=== PATIENT | male | born 1950 | race Caucasian/White ===

== ENCOUNTER → 2023-08-27 10:43 | Outpatient (REF) | payer OTHER, SELFPAY | LOC: DHCBS MAIN 10:43 | PROVIDERS: ATTENDING PHYSICIAN Internal Medicine Cardiovascular Disease; FAMILY PHYSICIAN Internal Medicine | DX: I77.810 Thoracic aortic ectasia (principal); I10 Essential (primary) hypertension | CPT/HCPCS: 93306 ==

== ENCOUNTER → 2023-11-28 06:34 | Day surgery (SDC) | payer OTHER, SELFPAY | LOC: GI 06:34 | PROVIDERS: ATTENDING PHYSICIAN Internal Medicine | DX: Z12.11 Encounter for screening for malignant neoplasm of colon (principal); Z86.010 Personal history of colon polyps; K64.9 Unspecified hemorrhoids; K57.30 Diverticulosis of large intestine without perforation or abscess without bleeding; D12.0 Benign neoplasm of cecum; D12.3 Benign neoplasm of transverse colon; D12.2 Benign neoplasm of ascending colon | CPT/HCPCS: 45385; 45380; 88305 ==

== ENCOUNTER 2024-02-05 07:58 | Day surgery (SDC) | payer OTHER, SELFPAY ==
[2024-01-20 14:04] VITALS: BMI 27.5
[2024-01-20 14:36] LABS: INR 2.21; PT 24.4 Sec (11.4-14.6)
[2024-01-20 14:39] LABS: ALT (SGPT) 11 U/L (0-50); AST (SGOT) 19 U/L (17-59); Albumin 2.9 g/dl (3.5-5.0); Alkaline Phosphatase 84 U/L (38-126); Blood Urea Nitrogen 69 mg/dl (9-20); Calcium 11.4 mg/dl (8.4-10.2); Carbon Dioxide 25 mmol/L (22-30); Chloride 103 mmol/L (98-107); Estimated Creatinine Clearance 20 ml/min; Glucose 92 mg/dl (70-99); Magnesium 2.2 mg/dl (1.6-2.3); Potassium 5.4 mmol/L (3.5-5.1); Sodium 140 mmol/L (135-145); Total Protein 6.8 g/dl (6.3-8.2); eGFR 22.01
[2024-01-20 14:50] LABS: Total Bilirubin 0.6 mg/dl (0.2-1.3)
[2024-01-20 14:56] LABS: % Basophils 0.4 % (0-2); % Eosinophils 2.9 % (0-6); % Immature Granulocytes 0.2 % (0-0.5); % Lymphocytes 16.3 % (20.5-51.1); % Monocytes 10.7 % (1.7-9.3); % Neutrophils 69.5 % (42.2-75.2); Absolute Eosinophils 0.1 10^3/uL (0-0.7); Absolute Lymphocytes 0.7 10^3/uL (1.2-3.4); Absolute Monocytes 0.5 10^3/uL (0.1-0.6); Absolute Neutrophils 3.1 10^3/uL (1.4-6.5); Hematocrit 34.7 % (39.0-52.0); Hemoglobin 11.5 g/dL (13.0-18.0); Mean Corp Hgb Conc. 33.1 g/dL (33.0-37.0); Mean Corpuscular Hgb 32.1 pg (27.0-31.0); Mean Corpuscular Volume 96.9 fL (80.0-94.0); Mean Platelet Volume 11.2 fL (7.4-10.4); Nucleated Red Blood Cells % 0 % (-); Platelet Count 173 10^3/uL (130-400); Red Blood Cell Count 3.58 10^6/uL (4.70-6.10); Red Cell Dist. Width 13.7 % (11.5-14.5); White Blood Cell Count 4.5 10^3/uL (4.8-10.8)
[2024-02-05] VITALS (13 sets, daily range): BP systolic 112–132; BP diastolic 69–82
--- NOTE | 2024-02-05 09:31 | ITS.CL.ABL ---
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
Ablation
Procedure Report:
ELECTROPHYSIOLOGIC STUDY AND POSSIBLE ABLATION
DATE: February 05, 2024
Primary Care Provider: Dr. Rufino Matos
INDICATION:
Symptomatic Atrial Fibrillation.
Persistent
HISTORY: See H and P.
Symptomatic AF, poorly controlled with attempted medical therapy
He has a history of PAF, non-obstructive CAD, PAF, AF related cardiomyopathy, CKD (Stage 3), HTN, mildly dilated aortic root and dyslipidemia.
Initial PVI (RF) in 2010 and did well for several years, then recurred.
He again did well from an arrhythmia standpoint for several years after his�ablation ([place])August 16, 2015.
He recurred with symptomatic (fatigue) atrial fibrillation and required cardioversion February 06, 2019
Echocardiogram obtained prior to his cardioversion in December 2018 while he was in atrial fibrillation demonstrated reduction in LV function 35-40%, LVH up to 1.5 cm at IVS.
Amiodarone was initiated in 2018 to maintain sinus rhythm.
He has recurred with symptoms of fatigue, especially exertional fatigue and once again has been found to be in atrial fibrillation despite amiodarone.�
He has been maintained on oral anticoagulation.
HAS-BLED: 2
Age
Abnormal Renal Function
CHADSVASc: 4
CHF, NYHA Class 3, HFimpEF
HTN
Age (nearly age 74 yrs)
PRESENTING RHYTHM: AF
HISTORY: See H and P.
Symptomatic AF, poorly controlled with attempted medical therapy.
ANTICOAGULATION: rivaroxaban dose reduced to 15 mg daily based on CKD
'TIME-OUT': called and confirmed.
SEDATION/ANESTHESIA: provided via the anesthesia department using general anesthesia.
PROCEDURE:
Ultrasound Guidance performed by pr was utilized for femoral venous Vascular Access b/l.
A decapolar CS catheter was placed within the CS for mapping and pacing.
The intracardiac ultrasound catheter was positioned in the RA for continuous intracardiac ultrasound imaging.
Heparin bolus and infusion to target ACT at 300 -350 seconds was administered. Transseptal puncture was performed. This entailed advancing a sheath with dilator into the superior vena cava and withdrawing both (monitoring intracardiac ultrasound,
fluoroscopy and tip pressure) with the tip oriented toward the atrial septum. The fossa ovalis was engaged (indicated by sudden displacement of the sheath tip as well as tenting of the fossa seen on intracardiac ultrasound).
[employer] transseptal system was used. Left atrial catheter position was confirmed by echocardiographic imaging, pressure monitoring (LA mean pressure [ ] mm Hg) and fluoroscopy. The sheath was advanced over the dilator and positioned in the left
atrium.
The multipolar mapping catheter was initially positioned through the transseptal sheath for high density mapping.
Geometry and voltage mapping was performed using the Tingz multipolar grid catheter. Navex was utilized for three-dimensional electroanatomical mapping.
A 3-D map was created using Navex. This demonstrates 5 distinct pulmonary veins, left superior pulmonary vein, left inferior pulmonary vein, right superior pulmonary vein, right middle pulmonary vein and right inferior pulmonary vein.
Electroanatomical activation mapping demonstrated reconnection at the right middle pulmonary vein while the other pulmonary veins were electrically isolated. The posterior wall of the left atrium finds patchy voltage electrograms with patches of
electrically inactive tissue (no prior posterior wall ablation)
The [place] Pulse Select PFA catheter and system was used for cardiac ablation. Catheter positioning was guided and confirmed using both I.C.E. and fluoroscopy.
PV isolation approach was used to electrically isolate the right middle pulmonary vein and additional lesions were also given to the ostia of the other pulmonary veins to ensure ostial isolation. Then additional ablation lesion set encompassing
left atrial posterior wall ablation was accomplished. Next cardioversion restored sinus rhythm. Each PV ostia.
Remapping with the Tingz multipolar grid catheter found that all PVPs were eliminated at each vein demonstrating entrance block. Also pacing from the multipolar mapping catheter around the the circumference of the ostia was performed at 10 ma and
2.0 msec output to assess for exit block. Additionally the posterior wall of the left atrium is electrically isolated with both entrance and exit block.
Programmed electrical stimulation was performed and could not induce any arrhythmias.
I.C.E. :
Pre-Ablation Post-Ablation
LVEF: 50 % 50 %
WMA: none none
Pericardial effusion: none none
COMPLICATIONS:
none
SUMMARY:
- Mapping and ablation to isolate the PVs
- Additional AF ablation set after PVI.
- 3-D Electroanatomical Mapping
- Intracardiac Ultrasound
Post ablation, I discussed today's findings and results with the patient's , Angela.
RECOMMENDATIONS:
- Observe in monitored bed.
- Maintain oral anticoagulation.
- Office visit with me in 3 months.
-Note that there was extensive scarring of the posterior wall of the left atrium, there is both left atrial and right atrial dilatation. If he recurs with subsequent atrial arrhythmias my recommendation would be for antiarrhythmic drug therapy to
maintain sinus rhythm long-term.
Copy to: Dr. Rufino Matos
[2024-02-05 10:53] LABS: ACT-LR - POC 332 Seconds (116-155)
[2024-02-05 11:20] LABS: ACT-LR - POC 290 Seconds (116-155)
[2024-02-05] MEDS: NSS 500 IV (14:43)
--- NOTE | 2024-02-05 14:43 | PTCARENOTE ---
Pt heaved and dressing noted with 1/2 $ amount of blood. Area soft but ecchymotic after 1/2 heaving. Pressure held for 10 minutes. Nausea quickly resolved and pt elected to use the bathroom. Unable to void. VS stable when returned to bed with post
ambulation BP 120's/70's. Harleen AT RISK PARAPROFESSIONAL notified. IVB of 250 nss administered. Dressing removed to check for ooze. None noted.He sleeps when undisturbed. No murmur heard on auscultation.
--- NOTE | 2024-02-05 16:05 | W.PN.UPDATE ---
Update Note
Progress Note Update
Pt seen post PFA. Right FV with vascade closure, no ht/bleeding. OOB ambulating. Some difficulty with urination early but given 250cc NSS bolus and able to urinate a small amount. Post EKG NSR 80s, no acute changes. Resume xarelto tonight, continue
other meds as before. Followup with Dr. Holman as scheduled. Home today if groin site/tele remain stable.
== END 2024-02-05 16:00 | disposition home or self-care (01) ==
LOC: CATH 07:58
PROVIDERS: ATTENDING PHYSICIAN Internal Medicine Cardiovascular Disease; FAMILY PHYSICIAN Internal Medicine
DX: I48.0 Paroxysmal atrial fibrillation (principal); Z79.01 Long term (current) use of anticoagulants; I13.0 Hypertensive heart and chronic kidney disease with heart failure and stage 1 through stage 4 chronic kidney disease, or unspecified chronic kidney disease; I50.9 Heart failure, unspecified; N02.B1 Recurrent and persistent immunoglobulin A nephropathy with glomerular lesion; I10 Essential (primary) hypertension; I42.8 Other cardiomyopathies; K21.9 Gastro-esophageal reflux disease without esophagitis; G47.33 Obstructive sleep apnea (adult) (pediatric)
CPT/HCPCS: C1732; C1894; C1733; C1769; C1892; 36415; 76937; 80053; 83735; 85025; 85347; 85610; 86850; 86900; 86901; 93005; 93656; 93657; C1730; C1759; C1760

== ENCOUNTER → 2024-05-22 06:53 | Day surgery (SDC) | payer OTHER, SELFPAY ==
--- NOTE | 2024-05-23 08:55 | ITS.CL.CARDI ---
Audiology Technician - Cardioversion
Cardioversion
Procedure Report:
Date of Procedure: 05/22/24
Procedure: Cardioversion
Indication: Symptomatic atrial fibrillation
Performing Physician: Mariel Richmond DO [facility]
Anticoagulation: Xarelto
Antiarrhythmic therapy: Amiodarone
Technique: The patient was brought to the holding area. Signed informed consent was obtained. A time out was called and performed. The patient was anesthetized by the anesthesia service. Anticoagulation status was reviewed and appropriate. R2 pads
were placed anteriorly and posteriorly. A 200 J synchronized biphasic shock restored normal sinus rhythm without significant bradycardia. There were no complications.
Conclusion: Uncomplicated cardioversion from atrial fibrillation to sinus rhythm.
Recommendation: Routine post cardioversion care. Continue terminal supervisor anticoagulation.
== END ==
LOC: CATH 06:53
PROVIDERS: ATTENDING PHYSICIAN Internal Medicine Cardiovascular Disease; FAMILY PHYSICIAN Internal Medicine; OTHER PHYSICIAN Internal Medicine Cardiovascular Disease
DX: I48.0 Paroxysmal atrial fibrillation (principal); I25.10 Atherosclerotic heart disease of native coronary artery without angina pectoris; I12.9 Hypertensive chronic kidney disease with stage 1 through stage 4 chronic kidney disease, or unspecified chronic kidney disease; N18.4 Chronic kidney disease, stage 4 (severe); E78.2 Mixed hyperlipidemia; E03.9 Hypothyroidism, unspecified; K21.9 Gastro-esophageal reflux disease without esophagitis; G47.33 Obstructive sleep apnea (adult) (pediatric); Z87.891 Personal history of nicotine dependence; Z79.01 Long term (current) use of anticoagulants; Z79.84 Long term (current) use of oral hypoglycemic drugs
CPT/HCPCS: 92960; 93005

== ENCOUNTER 2024-05-29 12:15 | Emergency (ER) | payer OTHER, SELFPAY ==
[2024-05-29 12:20] VITALS: BP 176/81
[2024-05-29 12:51] LABS: Urine Albumin 3+ (Neg - Trace); Urine Bilirubin Negative (Negative); Urine Character Bloody (Clear); Urine Color Red; Urine Glucose Trace (Negative); Urine Ketone Negative (Negative); Urine Leukocyte 1+ (Negative); Urine Nitrite Negative (Negative); Urine Occult Blood 4+ (Negative); Urine Specific Gravity 1.015 (<1.030); Urine Urobilinogen Negative (Neg - 1+)
[2024-05-29 13:06] LABS: ALT (SGPT) 16 U/L (0-50); AST (SGOT) 23 U/L (17-59); Albumin 4.5 g/dl (3.5-5.0); Alkaline Phosphatase 96 U/L (38-126); Blood Urea Nitrogen 71 mg/dl (9-20); Carbon Dioxide 30 mmol/L (22-30); Chloride 100 mmol/L (98-107); Glucose 101 mg/dl (70-99); Potassium 5.1 mmol/L (3.5-5.1); Sodium 139 mmol/L (135-145); Total Bilirubin 0.7 mg/dl (0.2-1.3); Total Protein 6.8 g/dl (6.3-8.2); Urine Squamous Cell 0-2 /LPF (Few); eGFR 17.56
[2024-05-29 13:07] LABS: Urine Red Blood Cell >100 /HPF (0-2); Urine White Cell 50-60 /HPF (0-5)
[2024-05-29 13:11] LABS: % Basophils 0.7 % (0-2); % Eosinophils 3.1 % (0-6); % Immature Granulocytes 0.2 % (0-0.5); % Lymphocytes 15.2 % (20.5-51.1); % Monocytes 10.9 % (1.7-9.3); % Neutrophils 69.9 % (42.2-75.2); Absolute Eosinophils 0.1 10^3/uL (0-0.7); Absolute Lymphocytes 0.7 10^3/uL (1.2-3.4); Absolute Monocytes 0.5 10^3/uL (0.1-0.6); Absolute Neutrophils 3.1 10^3/uL (1.4-6.5); Hematocrit 34.2 % (39.0-52.0); Mean Corp Hgb Conc. 32.2 g/dL (33.0-37.0); Mean Corpuscular Hgb 31.6 pg (27.0-31.0); Mean Corpuscular Volume 98.3 fL (80.0-94.0); Mean Platelet Volume 10.5 fL (7.4-10.4); Nucleated Red Blood Cells % 0 % (-); Platelet Count 164 10^3/uL (130-400); Red Blood Cell Count 3.48 10^6/uL (4.70-6.10); Red Cell Dist. Width 14.8 % (11.5-14.5); White Blood Cell Count 4.5 10^3/uL (4.8-10.8)
[2024-05-29 13:37] LABS: INR 2.34; PT 25.7 Sec (11.4-14.6)
[2024-05-29 14:11] VITALS: BMI 25.8
--- NOTE | 2024-05-29 14:27 | ED.GENMED ---
History of Present Illness
General
Chief Complaint: Urinary Symptoms
Time Seen by Provider: 05/29/24 13:28
History of Present Illness
History of Present Illness:
73-year-old male presents the emergency department for evaluation of hematuria and urinary frequency beginning last night. Denies any urine retention. No flank pain or fevers.
Past History
Past History
ED Past Medical History: Arrthythmia, CAD, HTN, Hypercholesterolemia and Other (GI bleed)
ED Past Surgical History: Cardiac (Recent ablation and cardioversion) and Orthopedic
Social History
Tobacco: Non-smoker
Personal:
Living: with family
Review of Systems
Review of Systems
Allergies reviewed?: Yes
All Other Systems: ROS reviewed and negative except as documented in HPI and ROS
Phy Exam
Physical Exam
Physical Exam:
GEN: Well appearing, NAD, WDWN
HEENT: Oral mucosa moist, no scleral icterus
Cardiac: Regular rate
Lung: No respiratory distress, no tachypnea
Abdomen: Soft, nontender to palpation
MSK: No gross deformity or injuries
Skin: Good color, no pallor or jaundice, no rashes
Neuro: AO x3, moves all extremities freely
Psych: Calm, cooperative
Course
Orders/Labs/Results
Orders:
Orders
05/29/24 12:36
CBC/With Diff [Complete Blood Count/With Diff] Urgent
Comprehensive Metabolic Panel Urgent
PT/INR [Prothrombin Time] Urgent
Urinalysis Reflex To Culture Urgent
Date Specimen was Collected: 05/29/24
Time Specimen was Collected: 12:24
Urine Microscopic Reflex Cult Urgent
Urine Culture Urgent
SHARI Source: U
Specimen Description:
Date Specimen was Collected: 05/29/24
Time Specimen was Collected: 12:24
Abnormal Lab Results
05/29/24
12:36
WBC 4.5 L 10^3/uL
(4.8-10.8)
RBC 3.48 L 10^6/uL
(4.70-6.10)
Hgb 11.0 L g/dL
(13.0-18.0)
Hct 34.2 L %
(39.0-52.0)
MCV 98.3 H fL
(80.0-94.0)
MCH 31.6 H pg
(27.0-31.0)
MCHC 32.2 L g/dL
(33.0-37.0)
RDW 14.8 H %
(11.5-14.5)
MPV 10.5 H fL
(7.4-10.4)
Absolute Lymphs (auto) 0.7 L 10^3/uL
(1.2-3.4)
Lymphocytes % 15.2 L %
(20.5-51.1)
Monocytes % 10.9 H %
(1.7-9.3)
PT 25.7 H Sec
(11.4-14.6)
BUN 71 H mg/dl
(9-20)
Creatinine 3.5 H mg/dL
(0.7-1.3)
Glucose 101 H mg/dl
(70-99)
Calcium 11.0 H mg/dl
(8.4-10.2)
Ur Occult Blood Reflex 4+ A
(Negative)
Leukocyte Esterase Rfl 1+ A
(Negative)
Urine RBC >100 A /HPF
(0-2)
Urine WBC (Reflex) 50-60 A /HPF
(0-5)
Urine Glucose Trace A
(Negative)
Urine Albumin (Reflex) 3+ A
(Neg - Trace)
05/29/24 12:36
05/29/24 12:36
Vital Signs
Initial and Last Documented VS:
Initial Vital Signs
Temp Pulse Resp BP Pulse Ox
97.7 F 55 16 176/81 99
05/29/24 12:20 05/29/24 12:20 05/29/24 12:20 05/29/24 12:20 05/29/24 12:20
Last Documented Vital Signs
Temp Pulse Resp BP Pulse Ox
97.7 F 50 18 143/76 99
05/29/24 12:20 05/29/24 15:08 05/29/24 15:08 05/29/24 15:08 05/29/24 15:08
MDM/Problems Addressed
MDM/Problems Addressed:
Given the large volume of leukocytes in the urine this is likely an acute hemorrhagic UTI. Will treat with antibiotics, hemoglobin counts are stable at this time, no evidence of clot retention. Recommend outpatient urology follow-up if hematuria
does not improve
*Critical Care Note
Total Time (30-74mins, 75-104mins- exclusive of procedures): Not Applicable
ED Attending Note
-
Portions of this chart may have been created with voice recognition software.� Occasional wrong word or��sound alike� substitutions may have occurred due to the inherent limitations of voice recognition software.
Discharge Plan
Departure
Patient Disposition: Home (Routine Discharge)
Date of Disposition: 05/29/24
Time of Disposition: 14:27
Patient with high blood pressure during this ER visit?: No
Discharge Problem:
Hematuria
Instructions: Urinary Tract Infection, Adult (DC)
Prescriptions:
New
cefdinir 300 mg capsule
300 mg PO BID Qty: 14 0RF
No Action
levothyroxine 50 MCG tablet
50 mcg PO DAILY
amiodarone 200 MG tablet
200 mg PO QPM
simvastatin 20 MG tablet
20 mg PO QPM
allopurinol 300 MG tablet
150 mg PO QPM
Prolia 60 MG/ML syringe
60 mg SQ [id number]
esomeprazole magnesium [Nexium 24HR] 20 MG tablet,delayed release (DR/EC)
20 mg PO DAILY
Xarelto 15 MG tablet
15 mg PO QPM
sodium bicarbonate 650 mg Tablet
650 mg PO BID
losartan-hydrochlorothiazide 50-12.5 mg Tablet
1 tab PO DAILY
Jardiance 10 mg Tablet
10 mg PO DAILY
Referrals:
Rufino Matos DO [Family Provider] -
Activity Restrictions/Additional Instructions:
If your bleeding does not improve while on antibiotics please return to the emergency department for reevaluation
Please follow-up with your urologist for reevaluation
If you develop urinary retention and inability to urinate return to the ER immediately
Interventions
Interventions:
*Risk Screen - Suicide Last Done: 05/29/24 12:20
*General Assessment Last Done: 05/29/24 12:20
*Neglect/Abuse Screening Last Done: 05/29/24 12:20
ED- Fall Risk Assessment Last Done: 05/29/24 14:13
*ED COVID-19 Vaccine History Last Done: 05/29/24 14:12
*Nursing Disposition Last Done: 05/29/24 15:08
ED-Male Genitourinary Assessment Last Done: 05/29/24 14:12
Discharge Date and Time
Discharge Date/Time: 05/29/24 15:09
Print Language: ALBAN[place]
[2024-05-29 15:08] VITALS: BP 143/76
== END 2024-05-29 15:09 | disposition home or self-care (01) ==
LOC: EMR 12:15
PROVIDERS: EMERGENCY PHYSICIAN Student in an Organized Health Care Education/Training Program; FAMILY PHYSICIAN Internal Medicine
DX: R31.9 Hematuria, unspecified (principal); I25.10 Atherosclerotic heart disease of native coronary artery without angina pectoris; I10 Essential (primary) hypertension; E78.00 Pure hypercholesterolemia, unspecified
CPT/HCPCS: 99283; 80053; 81003; 81015; 85025; 85610; 87086

== ENCOUNTER → 2024-11-05 07:55 | Outpatient (REF) | payer OTHER, SELFPAY | LOC: RAD 07:55 | PROVIDERS: ATTENDING PHYSICIAN Internal Medicine Endocrinology, Diabetes & Metabolism; FAMILY PHYSICIAN Internal Medicine | DX: M81.0 Age-related osteoporosis without current pathological fracture (principal) | CPT/HCPCS: 77080 ==

== ENCOUNTER → 2024-12-18 10:09 | Outpatient (REF) | payer OTHER, SELFPAY | LOC: HWRAD 10:09 | PROVIDERS: ATTENDING PHYSICIAN Orthopaedic Surgery Hand Surgery; FAMILY PHYSICIAN Internal Medicine | DX: M19.019 Primary osteoarthritis, unspecified shoulder (principal); M25.512 Pain in left shoulder | CPT/HCPCS: 73200 ==

== ENCOUNTER 2025-01-13 06:21 | Day surgery (SDC) | payer OTHER, SELFPAY ==
--- NOTE | 2024-12-25 12:13 | CM ---
Addendum entered by Carolina Ga RN 12/25/24 13:06:
CM confirmed demographics. Patient lives independently with . Patient is active with his PCP. Patient confirmed medication coverage. Patient does not have a history of VN or SNF.
PLAN: home with , and when surgically cleared outpatient PT.
Original Note:
CM reviewed medical records. CM left message to discuss discharge planning.
[2024-12-28 08:56] LABS: Hematocrit 35.8 % (39.0-52.0); Hemoglobin 11.5 g/dL (13.0-18.0); Mean Corp Hgb Conc. 32.1 g/dL (33.0-37.0); Mean Corpuscular Volume 99.4 fL (80.0-94.0); Platelet Count 173 10^3/uL (130-400); Red Cell Dist. Width 14.5 % (11.5-14.5)
[2024-12-28 09:19] LABS: ALT (SGPT) 10 U/L (0-50); AST (SGOT) 14 U/L (17-59); Albumin 4.4 g/dl (3.5-5.0); Alkaline Phosphatase 75 U/L (38-126); Blood Urea Nitrogen 81 mg/dl (9-20); Calcium 10.4 mg/dl (8.4-10.2); Carbon Dioxide 26 mmol/L (22-30); Chloride 106 mmol/L (98-107); Glucose 59 mg/dl (70-99); Potassium 5.4 mmol/L (3.5-5.1); Sodium 140 mmol/L (135-145); Total Protein 6.8 g/dl (6.3-8.2); eGFR 21.87
[2024-12-28 09:59] LABS: Glycohemoglobin (HgbA1c) 5.3 % (4.0-5.6)
[2024-12-28 13:55] VITALS: BMI 27.2
--- NOTE | 2024-12-28 15:02 | HPS.HSE ---
Family Physician
-
Family Physician: Rufino Matos
Chief Complaint
-
Advanced primary osteoarthritis of bilateral shoulders. Same-day surgery.
History of Present Illness
The patient is a 74-year-old male presenting today for advanced primary osteoarthritis of his bilateral shoulders. The patient reports more significant pain in his left shoulder in comparison to his right. He notes that his current left
shoulder pain greatly interferes with his activities of daily living and overall impacts his quality of life. He has tried and failed multiple conservative treatment measures in the past for his left shoulder pain. These conservative treatment
measures include activity modification, formal physical therapy, self-directed therapeutic exercises, intra-articular injections, medical management with Tylenol, and the application of ice and/or heat. A recent CT scan of the left shoulder
confirmed severe degenerative changes of the left glenohumeral joint. He was determined to be in need of a left reverse total shoulder arthroplasty. He will also undergo a right shoulder cortisone injection. He denies any current complaints today
such as chest pain, shortness of breath, palpitations, nausea, vomiting, diarrhea, lightheadedness, dizziness, cough, sore throat, or fever.
Medical History
Past Medical History
Past Medical History: Reports Other
Additional Past Medical History:
1. Osteoarthritis, status post left total knee arthroplasty, 06/2022, and right total knee arthroplasty, 03/2023, at an outside facility.
2. Hypertension.
3. Hyperlipidemia.
4. Coronary artery disease, non-obstructive.
5. Paroxysmal atrial fibrillation, status post multiple ablations and cardioversion x2; pharmacological therapy with Metoprolol Succinate and oral anticoagulation with Xarelto.
6. Nonsustained ventricular tachycardia.
7. PVCs, asymptomatic.
8. Congestive heart failure.
9. Dilated cardiomyopathy, likely tachycardia mediated, with improved ejection fraction by echo.
10. Dilated aortic root.
11. Obstructive sleep apnea, noncompliant with device.
12. Chronic kidney disease stage 4 with associated IgA nephropathy.
13. GERD.
14. Colon polyps.
15. Diverticulosis.
16. Nephrolithiasis.
17. Hepatitis A 1980s.
18. Hypothyroidism.
19. Primary hyperparathyroidism.
20. Anemia of chronic disease.
21. BPH.
22. Gout.
23. Osteoporosis.
24. Tinnitus.
25. Mild hyperkalemia.
26. History of MRSA wound abscess 2011; 2 negative swabs since diagnosis.
27. History of tobacco and alcohol abuse.
Past Surgical History: Reports Other
Additional Past Surgical History:
1. Left total knee arthroplasty, 06/2022, at an outside facility.
2. Right total knee arthroplasty, 03/2023, at an outside facility.
3. Lumbar laminectomy.
4. Bilateral elbow fracture repair.
5. Atrial fibrillation ablation x4.
6. Cardioversion x2.
7. Partial parathyroidectomy.
8. Total parathyroidectomy.
9. Multiple lithotripsies.
10. BPH surgery.
11. Lipoma excision.
12. Prostate biopsy.
13. Kidney biopsy.
14. Multiple colonoscopies.
Social History
Tobacco: Former Smoker (He is a former 1/2 pack per day cigarette smoker who quit tobacco altogether in 1981. )
Alcohol: Other (He quit drinking alcohol in 1981. )
Personal:
Living: Other (He lives with his in a 3 story home. )
Family History
Family History: Not pertinent
Allergies / Home Medications
Allergy/Medication List:
HOME MEDICATIONS:
1. Jardiance 10 mg p.o. daily.
2. Allopurinol 150 mg p.o. daily.
3. Prolia 60 mg subcutaneous every 6 months.
4. Nexium 20 mg p.o. daily.
5. Levothyroxine 50 mcg p.o. daily.
6. Losartan-hydrochlorothiazide 50-12.5 mg p.o. daily.
7. Toprol-XL 25 mg p.o. daily.
8. Xarelto 15 mg p.o. daily.
9. Simvastatin 20 mg p.o. every evening.
10. Torsemide 10 mg p.o. daily.
11. Sodium bicarbonate 650 mg p.o. twice a day.
12. Multivitamin 1 tablet p.o. daily.
ALLERGIES: No known drug allergies.
Review of Systems
-
A 12 point ROS was completed and negative except as noted: Yes
Physical Exam
Vital Signs
Blood pressure 117/77. Heart rate 73. Respirations 18. Pulse ox 99% on room air.
Height 5 feet, 7 inches. Weight 78.7 kg. BMI 27.2.
Physical Exam
General: Well Developed, Well Nourished and No Apparent Distress
HEENT: NormoCephalic, Moist mucous membranes, Atraumatic and PERRLA
Respiratory: Clear
Cardiac: Regular Rhythm
GI: Soft, Non Tender and Non Distended
Musculoskeletal: Other (Bilateral shoulders: significant weakness with resisted rotator cuff testing. Intermittent crepitation present. Deltoids fire without difficulty. Sensation intact to light touch. Pain with extremes of motion. ROM is limited
to 90 degrees of forward flexion/abduction on left and 110 degrees on right.)
Skin: Warm and Dry
Neuro: AO x 3 and Nonfocal/grossly intact
Laboratory Results
-
12/28/24 07:43
12/28/24 07:43
Laboratory Results
Total Bilirubin 0.7 mg/dl (0.2-1.3) 12/28/24 07:43
AST 14 U/L (17-59) L 12/28/24 07:43
ALT 10 U/L (0-50) 12/28/24 07:43
Alkaline Phosphatase 75 U/L (38-126) 12/28/24 07:43
Blood type O positive.
MRSA screen negative.
EKG provided by cardiology.
Echocardiogram 08/27/2023: Mild to moderate left ventricular hypertrophy with preserved systolic function. Ejection fraction is 59%. Thickened mitral leaflets with mild mitral regurgitation. Mitral annular calcification. Mild mitral regurgitation
and markedly dilated left atrium. Aortic sclerosis with mild aortic regurgitation. Normal right heart with normal pulmonary artery pressure. Mildly dilated ascending aorta.
Impression/Plan
-
CLEARANCES:
1. Primary medical, Dr. Rufino Matos, cleared at above average risk.
Primary medical phone number: [phone].
2. Cardiology, Dr. Joshua Holman, cleared.
3. Dental waived.
IMPRESSION/PLAN:
1. Advanced primary osteoarthritis of bilateral shoulders in need of a left reverse total shoulder arthroplasty and right shoulder cortisone injection with Dr. Matthew Wilcox on 01/13/2025. The benefits and risks of the procedure have been explained
to the patient. The patient understands these risks and wishes to proceed.
2. Deep vein thrombosis prophylaxis: Xarelto at modified dosing and bilateral venous compression devices. The patient was made aware to hold his Xarelto three days prior to his procedure. We will resume his home dosing of Xarelto on post-operative
day three as long as he remains hemodynamically stable.
3. Pain management: The patient has stable comorbidities as referenced by his primary care physician and thermostat mechanic and is medically optimized to proceed as a Same-Day Surgery candidate on 01/13/2025. In preparation for his procedure, he has
already been prescribed Oxycodone 5 mg, one to two tablets p.o. every six hours as needed for moderate to severe post-operative pain. He will also utilize Tylenol 1000 mg p.o. every 6 hours and Gabapentin 200 mg p.o. at bedtime for neuropathic
pain/sleep. NSAIDs will be avoided due to his chronic kidney disease.
4. Post-operative bowel regimen: The patient was advised to purchase Colace and Senokot for post-operative use. These will be taken twice a day post-procedure, regardless of oral intake, until he is having regular bowel movements. Adequate
hydration, early mobility as tolerated, and the minimization of opioids were also discussed john-operatively.
Patient's phone number: [phone].
Patient's contact (Michelle Rob - Spouse): [phone].
[2025-01-12 08:37] VITALS: BMI 27.2
[2025-01-13] VITALS (13 sets, daily range): BP systolic 77–122; BP diastolic 47–75
[2025-01-13] MEDS: NORMOSOL-R/PLASMALYTE-A 1000 IV (09:35)
[2025-01-13] MEDS: CELEBREX 200 MG PO (09:42)
[2025-01-13] MEDS: TYLENOL 1000 MG PO (09:42)
[2025-01-13] MEDS: ANCEF 5 IV (16:40)
== END 2025-01-13 16:57 | disposition home or self-care (01) ==
LOC: SDS 06:21
PROVIDERS: ATTENDING PHYSICIAN Orthopaedic Surgery Hand Surgery; FAMILY PHYSICIAN Internal Medicine; OTHER PHYSICIAN Physician Assistant; REFERRING PHYSICIAN Internal Medicine Cardiovascular Disease
DX: M19.012 Primary osteoarthritis, left shoulder (principal); M19.011 Primary osteoarthritis, right shoulder; Z96.612 Presence of left artificial shoulder joint
CPT/HCPCS: 23472; 20610; C1776; 36415; 73020; 80053; 83036; 85027; 86850; 86900; 86901; 87070

== ENCOUNTER 2025-03-04 13:46 | Emergency (ER) | payer OTHER, SELFPAY ==
[2025-03-04 13:52] VITALS: BP 146/88
--- NOTE | 2025-03-04 15:07 | ED.GENMED ---
History of Present Illness
General
Chief Complaint: Dizziness
Source: patient
Exam Limitations: none
Time Seen by Provider: 03/04/25 14:32
Nursing documentation reviewed up to this point in time: agreed with
History of Present Illness
History of Present Illness:
Patient is a 74-year-old male with history atrial fibrillation on Xarelto, aortic stenosis, CAD, hypertension who presents to the emergency department for evaluation of generalized weakness and unsteadiness. He states that when he woke up this
morning he felt very lightheaded and weak. He has had multiple episodes of dry heaves throughout the morning and states that he feels very unsteady on his feet. He denies any true dizziness or sensation of movement. Symptoms did seem to improve
mildly while lying down. Since arriving to the emergency department, he states symptoms have improved somewhat.
He denies any fever, chills, chest pain, or shortness of breath. No abdominal pain. He does not have any headache, neck pain, visual changes, numbness/tingling or unilateral weakness in extremities.
Patient's states that he seemed generally 'disoriented' and very clammy. She denies any obvious slurred speech or dysarthria however states that he was speaking very slowly.
Patient does report a past history of vertigo for which she takes meclizine. He states the symptoms felt different than his typical episodes of vertigo.
He states that he is compliant with his Xarelto.
Past History
Past History
ED Past Medical History: Arrthythmia, CAD, HTN, Hypercholesterolemia and Other (GI bleed)
ED Past Surgical History: Cardiac (Recent ablation and cardioversion) and Orthopedic
Social History
Tobacco: Non-smoker
Personal:
Living: with family
Review of Systems
Review of Systems
Allergies reviewed?: Yes
All Other Systems: ROS reviewed and negative except as documented in HPI and ROS
Phy Exam
Physical Exam
Physical Exam:
Vitals: Mildly hypertensive, otherwise vital signs stable. Afebrile
General: Patient appears in no distress.
Skin: Warm and dry, no rashes or lesions
Head: Normocephalic, atraumatic
Eyes: Sclera nonicteric. Pupils equal round and reactive to light bilaterlly. EOMs intact. No nystagmus.
Throat: Protecting airway
Neck: Normal ROM, no cervical spine tenderness, no meningismus
Cardiac: Regular rate, irregular rhythm. no murmurs.
Pulm: Normal respiratory effort, no wheezes, rales, rhonchi heard on exam
Abdomen: Abdomen soft and nontender.
Extremities: No evidence of cyanosis or edema. Strength 5/5 in bilateral lower extremities with normal sensation. Well-healing surgical scar of left anterior shoulder with decreased range of motion secondary to recent operation. 5/5 strength in
right upper extremity.
Neuro: AAOx3. CN II-XII grossly intact on examination. No facial droop or asymmetry. Fluid speech. Slow however steady gait. Normal [id number] and [id number]. No focal neurologic deficits.
Psychiatric: Normal affect.
Course
Orders/Labs/Results
Orders:
Orders
03/04/25 13:55
EKG [Electrocardiogram (*1)] Urgent
Reason for Study: Vertigo / Dizzy
EKG- Treatment ONCE
03/04/25 14:50
0.9% Sodium Chloride 500 ml [Nss] 500 ml IV BOLUS
03/04/25 14:51
CT Head W/o Iv Contrast Urgent
Comment:
Reason For Exam: Ataxia, lightheadedness
03/04/25 15:22
COVID-19 Antigen Urgent
Source: Nasal Swab
Complete Blood Count/With Diff Urgent
Comprehensive Metabolic Panel Urgent
Troponin I Urgent
03/04/25 15:30
Cardiac Monitoring- Treatment ONCE
03/04/25 18:20
Troponin I Urgent
03/04/25 18:25
Electrocardiogram (*1) Urgent
Reason for Study: Fatigue / Weakness
EKG- Treatment ONCE
Abnormal Lab Results
03/04/25
15:22
RBC 3.59 L 10^6/uL
(4.70-6.10)
Hgb 11.3 L g/dL
(13.0-18.0)
Hct 34.9 L %
(39.0-52.0)
MCV 97.2 H fL
(80.0-94.0)
MCH 31.5 H pg
(27.0-31.0)
MCHC 32.4 L g/dL
(33.0-37.0)
MPV 10.5 H fL
(7.4-10.4)
Absolute Lymphs (auto) 0.4 L 10^3/uL
(1.2-3.4)
Neutrophils % 85.7 H %
(42.2-75.2)
Lymphocytes % 7.8 L %
(20.5-51.1)
BUN 75 H mg/dl
(9-20)
Creatinine 3.0 H mg/dL
(0.7-1.3)
Glucose 134 H mg/dl
(70-99)
Calcium 10.8 H mg/dl
(8.4-10.2)
AST 15 L U/L
(17-59)
03/04/25 15:22
03/04/25 15:22
Vital Signs
Initial and Last Documented VS:
Initial Vital Signs
Pulse Resp BP Pulse Ox
68 14 146/88 97
03/04/25 13:52 03/04/25 13:52 03/04/25 13:52 03/04/25 13:52
Last Documented Vital Signs
Pulse Resp BP Pulse Ox
85 15 147/83 97
03/04/25 19:00 03/04/25 19:00 03/04/25 18:00 03/04/25 15:30
MDM/Problems Addressed
Differential Diagnosis Includes:
Not limited to: Acute dehydration, viral illness, cardiac arrhythmia, anemia, CVA, BPPV, etc
MDM/Problems Addressed:
74-year-old male presenting after period of lightheadedness/dizziness, disorientation and difficulty with balance this morning. Symptoms are somewhat improved by my evaluation. He has no associated fever or infectious symptoms. No chest pain or
shortness of breath.
Vitals as above. On exam � patient is alert and oriented without any focal neurologic deficits. He has a normal cerebellar exam and has a steady gait here. Cardio/pulmonary assessment unremarkable.
Differential broad. Story somewhat concerning for possible central etiology such as TIA/CVA. Potentially cardiac in nature. May be related to dehydration, viral illness. Does not seem consistent with peripheral vertigo which he as had in the past.
ED plan: basic labs, cardiac enzymes. CT scan head. Will give IV fluids and reassess.
Update: Labs without clinically significant abnormalities. Troponin is negative. EKG show rate controlled atrial fibrillation/atrial flutter � which he states he is always in and is anticoagulated. CT shows possible old infarct without any acute
findings.
Work of in ED essentially negative. Patient states he�s feeling better and has been ambulating around room without any persistent ataxia, unsteadiness, or dizziness.
However � etiology uncertain at this time � with significant risk factors admission was recommended however patient declines and his adamant that he would like to go home.
He is agreeable to repeat troponin.
Update: Troponin undetectable with unchanged EKG. He remains stable and well appearing. Patient was seen in conjunction with attending physician. Once again, admission was recommended for observation/further work up however patient declines and
prefers discharge home. He will keep very close eye on symptoms and return with any acute worsening/new symptoms. Patient discharged in stable condition.
Chronic conditions affecting care:
Atrial fibrillation on xarelto, HTN
Acute Exacerbation and/or Progression of Chronic Illness:
Acutely hypertensive
*Radiology
Radiology exam reviewed: radiology read reviewed
*Pulse Oximetry
SaO2: 97
Oxygen Mode of Delivery: Room air
Patient hypoxic: no
*EKG
Interpreted by ED Provider?: Yes
EKG Intrepretation Date: 03/04/25
Interpretation: abnormal
Comparison EKG: changes noted
Heart Rate: 68
Rate: normal
Rhythm: a-fib
Reading: normal axis
Interval: normal QT interval
*[employer] Worker Interpretation
Rate: normal
Interpretation: abnormal
Heart Rate: 64
Rhythm: a-fib
*Critical Care Note
Total Time (30-74mins, 75-104mins- exclusive of procedures): Not Applicable
ED Attending Note
-
Portions of this chart may have been created with voice recognition software.� Occasional wrong word or��sound alike� substitutions may have occurred due to the inherent limitations of voice recognition software.
Discharge Plan
Departure
Patient Disposition: Home (Routine Discharge)
Date of Disposition: 03/04/25
Time of Disposition: 19:11
Patient with high blood pressure during this ER visit?: Yes
Discharge Problem:
Lightheadedness, Dry heaves, Unsteadiness
Instructions: Dizziness, Nonvertigo, (DC), BLOOD PRESSURE
Prescriptions:
No Action
levothyroxine 50 MCG tablet
50 mcg PO DAILY
simvastatin 20 MG tablet
20 mg PO QPM
allopurinol 300 MG tablet
150 mg PO QPM
Prolia 60 MG/ML syringe
60 mg SQ [id number]
esomeprazole magnesium [Nexium 24HR] 20 MG tablet,delayed release (DR/EC)
20 mg PO DAILY
Xarelto 15 MG tablet
15 mg PO QPM
sodium bicarbonate 650 mg Tablet
650 mg PO BID
Jardiance 10 mg Tablet
10 mg PO DAILY
metoprolol succinate 50 mg Tablet Extended Release 24 Hr
25 mg PO QPM
One-A-Day Men's 50 Plus 400-370 mcg Tablet
1 tab PO DAILY
oxycodone 5 mg tablet
5 - 10 mg PO Q6H PRN (Reason: moderate-severe pain) Qty: 30 0RF
Rx Instructions:
1 tab for moderate pain, 2 if severe.
Dx total joint.
gabapentin 100 mg capsule
200 mg PO HS Qty: 14 0RF
ondansetron HCl 4 mg tablet
4 mg PO Q6H PRN (Reason: nausea and vomiting) Qty: 30 0RF
doxycycline monohydrate 100 mg capsule
100 mg PO BID Qty: 7 0RF
Rx Instructions:
Start night of discharge and continue twice a day until finished.
Take with probiotic.
Xarelto 10 mg tablet
10 mg PO QPM Qty: 3 0RF
Rx Instructions:
Start night of discharge and continue nightly until finished.
Resume Xarelto 15 mg 8/9 PM.
mupirocin 2 % ointment
1 applic intranasal BID Qty: 1 0RF
Patient Comments:
Patient administered this medication 01/13/25@06:00. Patient started this medication administration on 01/10/25 in the morning.
tamsulosin 0.4 mg capsule
0.4 mg PO HS Qty: 10 0RF
Patient Comments:
Last dose was on 01/12/25 @ 19:00.
Rx Instructions:
Start 3 nights prior to surgery. Continue post-op until finished.
HOLD IF systolic BP <100
acetaminophen [Acetaminophen Extra Strength] 500 mg tablet
1,000 mg PO Q6H Qty: 60 0RF
Rx Instructions:
DO NOT exceed >4000 mg daily.
docusate sodium [Colace] 100 mg capsule
100 mg PO BID Qty: 30 0RF
sennosides [senna] 8.6 mg tablet
17.2 mg PO BID Qty: 30 0RF
Saccharomyces boulardii [Florastor] 250 mg capsule
250 mg PO BID Qty: 7 0RF
Rx Instructions:
Over the counter. Take while on antibiotic.
If unavailable, choose a different probiotic.
torsemide 20 mg Tablet
10 mg PO DAILY Qty: 1 0RF
Rx Instructions:
HOLD IF systolic blood pressure <130 while on post-surgical narcotics.
losartan-hydrochlorothiazide 50-12.5 mg Tablet
1 tab PO DAILY Qty: 1 0RF
Rx Instructions:
HOLD IF systolic blood pressure <130 while on post-surgical narcotics.
Referrals:
Rufino Matos DO [Family Provider, Internal Medicine] - Follow up in 5-7 days
Activity Restrictions/Additional Instructions:
RETURN TO THE EMERGENCY DEPARTMENT WITH ANY SEVERE HEADACHE OR NECK PAIN, PERSISTENT DIZZINESS OR LIGHTHEADEDNESS, INTRACTABLE VOMITING, CHANGES IN VISION OR MENTAL STATUS, UNSTEADINESS ON FEET, CHEST PAIN OR SHORTNESS OF BREATH, SIGNIFICANT
WEAKNESS, OR ANY OTHER CONCERNS
- As discussed�your workup in the emergency department showed no acute abnormalities. We are unsure the cause of your symptoms today. It was recommended that you stay in the overnight for further observation.
-Please stay well-hydrated and continue to take your medications as prescribed.
- Please follow-up with your primary care provider and reel stripper for further evaluation/management to ensure that your symptoms are improving
Monitor your symptoms closely and return to the emergency department with any acute worsening/new symptoms or any other concerns
Interventions
Interventions:
*Risk Screen - Suicide Last Done: 03/04/25 13:52
*General Assessment Last Done: 03/04/25 13:52
*Neglect/Abuse Screening Last Done: 03/04/25 13:52
*ED COVID-19 Vaccine History Last Done: 03/04/25 13:52
*Nursing Disposition Last Done: 03/04/25 19:53
ED- Neurological Assessment Last Done: 03/04/25 15:15
ED- Cardiac Assessment Last Done: 03/04/25 15:15
ED Swallowing Screen Last Done: 03/04/25 15:15
Discharge Date and Time
Discharge Date/Time: 03/04/25 19:55
Print Language: BENGALI
[2025-03-04 15:40] VITALS: BP 145/85
[2025-03-04 15:49] LABS: Hematocrit 34.9 % (39.0-52.0); Hemoglobin 11.3 g/dL (13.0-18.0); Mean Corp Hgb Conc. 32.4 g/dL (33.0-37.0); Mean Corpuscular Volume 97.2 fL (80.0-94.0); Nucleated Red Blood Cells % 0 % (-); Platelet Count 170 10^3/uL (130-400); Red Cell Dist. Width 14.1 % (11.5-14.5)
[2025-03-04 16:02] LABS: COVID-19 Antigen Negative (Negative)
[2025-03-04 16:05] VITALS: BP 146/89
[2025-03-04] MEDS: NSS 500 IV (16:06)
[2025-03-04 16:08] LABS: ALT (SGPT) 13 U/L (0-50); AST (SGOT) 15 U/L (17-59); Albumin 4.6 g/dl (3.5-5.0); Alkaline Phosphatase 76 U/L (38-126); Blood Urea Nitrogen 75 mg/dl (9-20); Calcium 10.8 mg/dl (8.4-10.2); Carbon Dioxide 26 mmol/L (22-30); Chloride 103 mmol/L (98-107); Glucose 134 mg/dl (70-99); Potassium 5.1 mmol/L (3.5-5.1); Sodium 139 mmol/L (135-145); Total Protein 6.8 g/dl (6.3-8.2); eGFR 21.00
[2025-03-04 16:16] LABS: Troponin I < 0.012 ng/ml
[2025-03-04 17:07] VITALS: BP 144/70
[2025-03-04 18:00] VITALS: BP 147/83
[2025-03-04 18:58] LABS: Troponin I < 0.012 ng/ml
== END 2025-03-04 19:55 | disposition home or self-care (01) ==
LOC: EMR 13:46
PROVIDERS: Physician Assistant; EMERGENCY PHYSICIAN Emergency Medicine; FAMILY PHYSICIAN Internal Medicine
DX: R42 Dizziness and giddiness (principal); E78.00 Pure hypercholesterolemia, unspecified; I10 Essential (primary) hypertension; I25.10 Atherosclerotic heart disease of native coronary artery without angina pectoris; I48.91 Unspecified atrial fibrillation; I48.92 Unspecified atrial flutter; Z79.01 Long term (current) use of anticoagulants; Z86.73 Personal history of transient ischemic attack (TIA), and cerebral infarction without residual deficits
CPT/HCPCS: 99284; 96360; 70450; 80053; 84484; 85025; 87811; 93005